=== PATIENT | male | born 1960 | race Caucasian/White ===

== ENCOUNTER 2018-05-14 06:14 | Observation (INO) | payer MEDICAID ==
[2018-05-14] MEDS ORDERED: FAMOTIDINE 20 MG TAB PO ONE (06:16)
[2018-05-14] MEDS ORDERED: ASPIRIN EC 325 MG TAB PO ONE ×2 (06:16→06:38)
[2018-05-14] MEDS ORDERED: diphenhydrAMINE 25 MG CAP PO ONE ×2 (06:16→06:38)
[2018-05-14] MEDS ORDERED: NS 1,000 ML IV ONE (06:16)
[2018-05-14] MEDS ORDERED: DIAZEPAM 5 MG TAB PO ONE (06:16)
--- NOTE | 2018-05-14 06:19 | PDHPUP ---
History & Physical Update H&P update statement: This history and physical update is based on an assessment of the patient which was completed after admission or registration (within 24 hours), but prior to the surgery/procedure. H&P update: H&P reviewed & patient examined, no change in patient's condition since H&P completed
--- NOTE | 2018-05-14 06:20 | PDPROPOC ---
Sedation Plan of Care Sedation Plan of Care: mental status noted, patient educated of risks, benefits , alternatives, patient can tolerate sedation ASA Classification: ASA 2 Planned drugs: fentanyl, midazolam Mallampati Score: Class 2 Mallampati Reference Image: Patient passed 3-3-2 rule?: Yes
[2018-05-14] MEDS ORDERED: FAMOTIDINE 20 MG TAB ONE (06:38)
[2018-05-14] MEDS ORDERED: DIAZEPAM 5 MG TAB ONE (06:38)
[2018-05-14 06:58] LABS: PLATELET COUNT 212 10^3/uL (150-400)
[2018-05-14 07:06] LABS: INR 1.15 (0.83-1.16); PROTIME(PATIENT) 14.9 SEC (12.0-15.0)
[2018-05-14] MEDS ORDERED: LIDOCAINE 1% 300 MG/30 ML SDV ONE (07:09)
[2018-05-14] MEDS ORDERED: fentaNYL 100 MCG/2 ML INJ ONE (07:09)
[2018-05-14] MEDS ORDERED: MIDAZOLAM 2 MG/2 ML VIAL ONE (07:10)
[2018-05-14] MEDS ORDERED: IOPAMIDOL (ISOVUE-370) 150 ML BTL IV ONE ×2 (07:10→07:58)
[2018-05-14] MEDS ORDERED: NITROGLYCERIN 1,500 MCG/15 ML VIAL MISC ONE (07:45)
[2018-05-14] MEDS ORDERED: ADENOSINE 90 MG/30 ML VIAL IV ONE (07:45)
[2018-05-14] MEDS ORDERED: BIVALIRUDIN 250 MG/5 ML VIAL IV ONE (07:45)
[2018-05-14] MEDS ORDERED: CLOPIDOGREL BISULFATE 75 MG TAB ONE (08:06)
[2018-05-14] MEDS ORDERED: METOPROLOL TARTRATE 5 MG/5 ML INJ ONE ×3 (08:10→08:40)
[2018-05-14] MEDS ORDERED: ATROPINE SULFATE 1 MG/10 ML SYR IVP PRN (08:25)
[2018-05-14] MEDS ORDERED: NITROGLYCERIN 0.4 MG BTL SL PRN (08:25)
[2018-05-14] MEDS ORDERED: TEMAZEPAM 15 MG CAP PO PRN (08:25)
[2018-05-14] MEDS ORDERED: LORazepam 2 MG/ML INJ IVP PRN (08:25)
[2018-05-14] MEDS ORDERED: ONDANSETRON 4 MG/2 ML VIAL ONE (08:40)
[2018-05-14] MEDS ORDERED: METOPROLOL TARTRATE 5 MG/5 ML INJ IV ONE (08:45)
[2018-05-14] MEDS ORDERED: ONDANSETRON 4 MG/2 ML VIAL IVP PRN (08:46)
--- NOTE | 2018-05-14 09:10 | CPEKG ---
Test Reason : OPEN Blood Pressure : / mmHG Vent. Rate : 128 BPM Atrial Rate : 201 BPM P-R Int : 092 ms QRS Dur : 087 ms QT Int : 341 ms P-R-T Axes : 000 055 033 degrees QTc Int : 498 ms Atrial fibrillation Minimal ST depression, anterolateral leads Borderline prolonged QT interval When compared with ECG of 04/05/2018 AF now noted Confirmed by Natalie Ware ([id number]) on 05/14/2018 9:09:40 AM Referred By: Confirmed By:Natalie Ware
--- NOTE | 2018-05-14 09:16 | CPIP ---
DATE OF PROCEDURE: 05/14/2018 INDICATION FOR PROCEDURE: Positive stress test, shortness of breath. PROCEDURE: 1. Nonselective right groin sheathogram. 2. 7-Mongolian sheath right common femoral vein. 3. Right heart catheterization with [place]-Lucas catheter. 4. Bilateral selective coronary angiography. 5. Left heart catheterization. 6. Left ventriculogram. 7. FFR of the mid LAD. 8. Percutaneous intervention of mid LAD utilizing Synergy 3.5 x 24 mm with stent. HISTORY: Briefly, this is a 57-year-old male with history of worsening shortness of breath symptoms as an outpatient. The patient has atrial fibrillation and has had a failed cardioversion. Patient u nderwent stress testing which showed a reduced overall ejection fraction with anterior apical ischemi a. Given these findings, patient consented for right and left heart catheterization. DESCRIPTION OF PROCEDURE: After informed consent was obtained, the patient was brought to [facility] where the right groin was prepped and draped in sterile fashion. Using lidocaine, a short 7-Mongolian sheath was introduced in the right common femoral vein, 6-Mongolian sheath right common femoral artery verified angiographically. Through the 7-Mongolian sheath, a [place]-Lucas catheter was advanced. Wedge pressure w as measured with a mean of 13 , PA pressure systolic 44, diastolic 27, mean of 30, RV press ure was systolic 35, diastolic 1 end of 8. RA pressure mean of 8, V-wave 8. Cardiac output was abner ured out to be 4.0 with a Jose Luis of 1.8. AO sat was measured to be approximately 92%. PA sat was 60%. At this time the [place]-Lucas catheter was removed. A JL4 catheter was advanced to the left coronary artery. Images of the left coronary artery revealed normal left main. This was a left dominant circ ulation. Left circumflex artery gave off a medium to large marginal artery proximally and a medium-s ized marginal 2 arteries. Secondary, the LPDA and appeared to be healthy and free of dise ase. The LAD was a long vessel which wrapped around the apex. In the mid LAD, there appeared to be a 70% tubular lesion just at the takeoff of 2 small to medium diagonal arteries. After these images were obtained the JL4 catheter was removed. The JR4 catheter was advanced to the right coronary irma ry. Images of the right coronary artery revealed a nondominant right coronary artery. This catheter was then removed. Pigtail catheter advanced to left ventricle. LVEDP is 20 mmHg. Left ventriculog patrick in the RA position showed EF of 40% to 45% with apical anterior hypokinesis. There was a 15 mm p ullback gradient between the LV and aorta. Pigtail catheter was removed over the 0.035 wire. INTERVENTIONAL REPORT: At this time the patient was started on an Angiomax bolus drip. Administered 600 Plavix p.o. An EBU 3.5 guide catheter was advanced to the left coronary artery. An FFR wire wa s then advanced down the LAD. Initial PD/PA revealed a measurement of 0.87 to validate this measurem ent. Adenosine was administered per [facility] FFR protocol. After adenosine administration for 2 minutes the number dropped from 0.87 to 0.78, indicating appropriate clinical severity. At this time the parris nosine infusion was turned off. We then proceeded with intervention of this lesion. Predilatation c ommenced with a 3.0 x 15 mm compliant balloon at 10 atmospheres. This was inflated in the mid LAD. After this was performed the balloon was removed. Angiogram was obtained which showed improved paten cy of this area. Decided to proceed with stenting this area with a 3.5 x 24 mm Synergy drug-eluting stent. This deployed successfully at 14 atmospheres. After deployment, angiographic images were obt ained, which showed excellent patency of the stented region with no evidence of dissection or perfora tion. This was verified in orthogonal views. The wire was removed. Of note, the FFR normalized pos t deployment as well. Wire was removed. Guide catheter was removed over an 0.035 wire. Right groin was closed with 6-Mongolian Angio-Seal. Patient tolerated the procedure well. The venous sheath was s utured in place. Patient tolerated the procedure well with no complications. IMPRESSION: 1. High-grade mid LAD 70% to 80% verified by PD/PA and FFR successfully treated with Synergy 3.5 x 2 4 mg drug-eluting stent. 2. Essentially normal left dominant circulation and nondominant right coronary artery. 3. Mildly reduced ejection fraction 40% to 45% with apical hypokinesia. 4. Borderline low cardiac output with normal pulmonic pressures. PLAN: The patient will remain on aspirin, Plavix, as well as Coumadin given his underlying atrial fi brillation. Patient will be anticipated to be discharged within 24 hours. /[id number]/MODL
--- NOTE | 2018-05-14 09:21 | CPEKG ---
Test Reason : OPEN Blood Pressure : / mmHG Vent. Rate : 103 BPM Atrial Rate : 128 BPM P-R Int : 152 ms QRS Dur : 082 ms QT Int : 360 ms P-R-T Axes : 000 040 031 degrees QTc Int : 471 ms Atrial fibrillation Confirmed by Natalie Ware ([id number]) on 05/14/2018 9:20:55 AM Referred By: Confirmed By:Natalie Ware
[2018-05-14] MEDS: ATENOLOL 50 MG TAB PO SCH (11:01)
[2018-05-14] MEDS: LISINOPRIL 40 MG TAB PO SCH (11:02)
[2018-05-14] MEDS: CIPROFLOXACIN 500 MG TAB PO SCH ×2 (12:00→20:32)
[2018-05-14] MEDS ORDERED: hydrALAZINE 20 MG/ML VIAL IVP PRN (14:58)
[2018-05-14] MEDS ORDERED: WARFARIN SODIUM 7.5 MG TAB PO SCH (16:00)
[2018-05-15 04:21] LABS: PLATELET COUNT 209 10^3/uL (150-400)
--- NOTE | 2018-05-15 07:47 | PDCARPN ---
Cardiology Progress Note Chief Complaint: SOB Assessment/Plan: Assessment: s/p PCI to LAD Plan: 05/15/18 07:45 doing very well no SOB still AF d/c home with triple therapy (coumadin, plavix, ASA) add cardizem CD f/u next week Subjective: doing well Reviewed/Discussed With: multidisciplinary team Time Spent with Patient: greater than 25 minutes Time Spent with Patient: Greater than 25 minutes spent on this patients care, greater than 50% of time spent counseling, educating, and coordinating care regarding the above mentioned plan. Objective: Vital Signs (8 Hrs) Temp Pulse Resp BP Pulse Ox 05/15/18 04:00 36.4 C 95 20 126/95 H 98 Intake/Output (24 Hrs) 05/14/18 05/15/18 05/16/18 05:59 05:59 05:59 Intake Total 1270 Output Total 900 Balance 370 Intake: Oral (ml) 620 IV Intake (ml) 650 Output: Urine (ml) 900 Urinal 900 Other: Weight 96.2 kg Result Diagrams: 05/15/18 03:36 05/15/18 03:36 - Physical Exam Constitutional: healthy appearing Eyes: PERRL Ears, Nose, Mouth, Throat: moist mucous membranes Cardiovascular: irregularly irregular Peripheral Pulses: 1+: femoral (R), femoral (L) Respiratory: no crackles Gastrointestinal: normoactive bowel sounds Genitourinary: no suprapubic tenderness Skin: no rashes Musculoskeletal: no muscular tenderness Neurologic: AAOx3 Psychiatric: cooperative ICD10 Worksheet Patient Problems: Problems Problem Status Onset Atrial fibrillation Acute
--- NOTE | 2018-05-15 08:08 | GDS ---
DIAGNOSIS: Coronary artery disease. HOSPITAL COURSE: Briefly, this is a 57-year-old male with history of atrial fibrillation, positive s tress test, who underwent diagnostic cardiac catheterization. The cardiac cath showed high-grade mid LAD disease, which was confirmed by FFR. The patient underwent successful PCI of the mid LAD with a drug-eluting stent. Post procedure patient has done very well. He actually feels much less shortne ss of breath, is ambulating in the halls without problems. The patient will be discharged home this morning with his home medications and baby aspirin, Plavix, as well as Cardizem CD 120 mg p.o. daily. He will follow up with me in the office in 1 week's time. /[id number]/MODL
[2018-05-15] MEDS: CIPROFLOXACIN 500 MG TAB PO SCH (08:11)
[2018-05-15] MEDS: ATENOLOL 50 MG TAB PO SCH (08:12)
[2018-05-15] MEDS: LISINOPRIL 40 MG TAB PO SCH (08:13)
[2018-05-15] MEDS ORDERED: DILTIAZEM CD 120 MG CAP PO SCH (09:00)
[2018-05-15] MEDS ORDERED: ASPIRIN 81 MG CHEWABLE TAB PO SCH (09:00)
[2018-05-15] MEDS ORDERED: CLOPIDOGREL BISULFATE 75 MG TAB PO SCH (09:00)
[2018-05-15 11:36] VITALS: BP 109/78
--- NOTE | 2018-05-15 12:59 | ASDISCHSUM ---
Discharge Information Plan Status:Home with No Needs Medically Cleared to Leave:05/15/2018 Discharge Date:05/15/2018 CM D/C Disposition:Home, Routine, Self-Care ADT D/C Disposition: Projected Discharge Date:05/15/2018 Transportation at D/C: Discharge Delay Reason: Follow-Up Date:05/15/2018 Discharge Slot: Final Diagnosis: Placement Information Patient Contact Information Contact Name:VICKI Relationship:Friend Address:[address] [place] [address] City:[place] Alternate Phone: State/Zip Code:[place] [address] Email: Financial Information Financial Class:Medicaid Primary Plan Desc:[employer] [place] Primary Plan Number:[id number] Secondary Plan Desc: Secondary Plan Number: Assessment Information LACE LACE Length of stay for Answers: 1 day current admission Acuity / Level of Answers: No Care: Did the patient have an inpatient admission? Comorbidities - select Answers: Diabetes (uncontrolled or all that apply controlled) Other Notes: AFib; HTN # of Emergency department Answers: 1-2 visits in the last 6 months Score: 4 Date Signed: 05/15/2018 12:40 PM Electronically Signed By:Treasure Churchill RN Intervention Information
[2018-05-15] MEDS ORDERED: metFORMIN HCL 500 MG TAB PO SCH (18:00)
== END 2018-05-15 14:40 | disposition home or self-care (01) ==
LOC: FCATH 06:14 → F2W 08:25
PROVIDERS: ADMIT Internal Medicine Cardiovascular Disease; ATTEND Internal Medicine Cardiovascular Disease
PROC: 4A023N8 Measurement of Cardiac Sampling and Pressure, Bilateral, Percutaneous Approach (ICD-10-PCS; principal; 2018-05-14)
PROC: 4A033BC Measurement of Arterial Pressure, Coronary, Percutaneous Approach (ICD-10-PCS; principal; 2018-05-14)
PROC: B2111ZZ Fluoroscopy of Multiple Coronary Arteries using Low Osmolar Contrast (ICD-10-PCS; principal; 2018-05-14)
PROC: B2151ZZ Fluoroscopy of Left Heart using Low Osmolar Contrast (ICD-10-PCS; principal; 2018-05-14)
PROC: 027034Z Dilation of Coronary Artery, One Artery with Drug-eluting Intraluminal Device, Percutaneous Approach (ICD-10-PCS; principal; 2018-05-14)
DX: I25.10 Atherosclerotic heart disease of native coronary artery without angina pectoris (principal); I48.91 Unspecified atrial fibrillation; E11.9 Type 2 diabetes mellitus without complications
CPT/HCPCS: 92928; 93005; 93460; 93571; C1725; C1769; C1887; G0378; C1760; C1874; C9600; J0153; J0360; J0583; J1644; J2250; J2405; J3010; Q9967